=== PATIENT | male | born 1970 | race Caucasian/White ===

== ENCOUNTER 2018-08-27 08:19 | Emergency (ER) | payer OTHER ==
[2018-08-27] MEDS: KETOROLAC 60 MG INJ IM (10:16)
== END 2018-08-27 11:54 | disposition home or self-care (01) ==
LOC: FTE 08:19
DX: M54.5 Low back pain (principal); M79.659 Pain in unspecified thigh
CPT/HCPCS: 72100; 72220; 96372; 99284-25